=== PATIENT | male | born 1945 | race Caucasian/White ===

== ENCOUNTER → 2017-10-19 | Outpatient (REF) | payer MEDICARE ==
[2017-10-21 15:06] LABS: ANTINUCLEAR ANTIBODIES DIRECT Negative (Negative)
== END ==
LOC: M LAB REF 17:20
DX: D69.6 Thrombocytopenia, unspecified (principal)
CPT/HCPCS: 86038

== ENCOUNTER → 2017-10-27 | Outpatient (REF) | payer MEDICARE ==
[2017-10-27 13:55] LABS: RETIC HEMOGLOBIN EQUIVALENT 29.7 pg (24-36); RETICULOCYTE % 2.3 % (0.5-1.5)
[2017-10-27 14:18] LABS: FERRITIN 28 NG/ML (26-388); IRON (FE) 32 UG/DL (65-175); PERCENT SATURATION 9.9 % (19.7-50.0); TOTAL IRON BINDING CAPACITY 323 UG/DL (250-450)
[2017-10-28 08:11] LABS: HAPTOGLOBIN 96 mg/dL (34-200)
[2017-10-28 12:52] LABS: ALBUMIN 3.35 GM/DL (3.29-5.55); ALBUMIN % 55.8 % (55.8-66.1); ALPHA-1-GLOBULIN % 4.9 % (2.9-4.9); ALPHA-1-GLOBULINS 0.29 GM/DL (0.17-0.41); ALPHA-2-GLOBULINS % 11.8 % (7.1-11.8); BETA-1-GLOBULINS % 7.2 % (4.7-7.2); BETA-2-GLOBULINS % 4.2 % (3.2-6.5); GAMMA GLOBULIN % 16.1 % (11.1-18.8)
[2017-10-28 12:53] LABS: ALPHA-2-GLOBULINS 0.71 GM/DL (0.42-0.99); BETA-1-GLOBULINS 0.43 GM/DL (0.28-0.60); BETA-2-GLOBULINS 0.25 GM/DL (0.19-0.55); GAMMA GLOBULINS 0.97 GM/DL (0.65-1.58)
== END ==
LOC: M LAB REF 13:37
DX: D69.3 Immune thrombocytopenic purpura (principal); D69.59 Other secondary thrombocytopenia; T50.905A Adverse effect of unspecified drugs, medicaments and biological substances, initial encounter
CPT/HCPCS: 83010

== ENCOUNTER → 2017-11-03 | Outpatient (REF) | payer MEDICARE | LOC: M LAB REF 17:19 | DX: D69.3 Immune thrombocytopenic purpura (principal); D69.59 Other secondary thrombocytopenia | CPT/HCPCS: 86880 ==

== ENCOUNTER → 2017-12-02 | Outpatient (REF) | payer MEDICARE ==
[2017-12-02 14:41] LABS: FERRITIN 11 NG/ML (26-388); IRON (FE) 68 UG/DL (65-175); PERCENT SATURATION 18.9 % (19.7-50.0); TOTAL IRON BINDING CAPACITY 359 UG/DL (250-450)
== END ==
LOC: M LAB REF 13:50
DX: D69.3 Immune thrombocytopenic purpura (principal); D69.59 Other secondary thrombocytopenia; T50.905A Adverse effect of unspecified drugs, medicaments and biological substances, initial encounter
CPT/HCPCS: 83550

== ENCOUNTER 2018-05-13 11:19 | Day surgery (SDC) | payer MEDICARE ==
[~2018-05-13] VITALS: Ht 152.4 cm; Wt 74.8 kg
[~2018-05-13 11:19] MED LIST: ATIV1TAB10 PO; ATOR1TAB19 PO; CARB25TA9 PO; CITA-231 PO; DIGI1TAB3 PO; DILT180C74 PO; FERR1TAB8 PO; FURO20TA2 PO; GLIP2.5T6 PO; LOPR1TAB6 PO; MAGN64TASA PO; METF10004 PO; METO1TAB7 PO; METO25TA4 PO; NAME5TAB13 PO; NS 1,000 ML IV ONE; PANT40TA3 PO; PRED50TA PO; PRIM250T8 PO; ROPI2TAB24 PO; VIMP100T PO
[2018-05-13] MEDS ORDERED: PROPOFOL 200 MG/20 ML VIAL As Ordered ONE (12:44)
[2018-05-13] MEDS ORDERED: LIDOCAINE 2% INJ 100 MG/5 ML SDV (FOR ANES.) As Ordered ONE (12:44)
--- NOTE | 2018-05-13 13:46 | ROOR ---
Patient Name: Andrew Magana Procedure Date: 05/13/2018 1:08 PM Date of : 1945 Age: 72 Room: [facility] Gender: Male Note Status: Finalized Procedure: Upper GI endoscopy Indications: Acute post hemorrhagic anemia Providers: Sukhwinder Horne MD Referring MD: ALFA RIDDLE DO Requestsally Provider: Medicines: Monitored Anesthesia Care Complications: No immediate complications. Procedure: Pre-Anesthesia Assessment: - Prior to the procedure, a History and Physical was performed, and patient medications and allergies were reviewed. The patient is competent. The risks and benefits of the procedure and the sedation options and risks were discussed with the patient. All questions were answered and informed consent was obtained. Patient identification and proposed procedure were verified by the physician, the nurse and the anesthesiologist in the procedure room. Mental Status Examination: normal. Airway Examination: normal oropharyngeal airway and neck mobility. Respiratory Examination: clear to auscultation. CV Examination: normal. Prophylactic Antibiotics: The patient does not require prophylactic antibiotics. Prior Anticoagulants: The patient has taken no previous anticoagulant or antiplatelet agents. ASA Grade Assessment: III - A patient with severe systemic disease. After reviewing the risks and benefits, the patient was deemed in satisfactory condition to undergo the procedure. The anesthesia plan was to use monitored anesthesia care (MAC). Immediately prior to administration of medications, the patient was re-assessed for adequacy to receive sedatives. The heart rate, respiratory rate, oxygen saturations, blood pressure, adequacy of pulmonary ventilation, and response to care were monitored throughout the procedure. The physical status of the patient was re-assessed after the procedure. The Endoscope was introduced through the mouth, and advanced to the second part of duodenum. The upper GI endoscopy was accomplished without difficulty. The patient tolerated the procedure well. Findings: The Z-line was irregular and was found 35 cm from the incisors. One tongue of salmon-colored mucosa was present from 33 to 35 cm. No other visible abnormalities were present. The maximum longitudinal extent of these esophageal mucosal changes was 2 cm in length. Biopsies were taken with a cold forceps for histology. Verification of patient identification for the specimen was done by the physician and nurse using the patient's name, date and medical record number. Estimated blood loss was minimal. Diffuse severe inflammation characterized by erosions, erythema and granularity was found in the gastric fundus, in the gastric body and in the gastric antrum. Biopsies were taken with a cold forceps for Helicobacter pylori testing. Diffuse moderate inflammation characterized by erythema was found in the duodenal bulb and in the second portion of the duodenum. Biopsies for histology were taken with a cold forceps for evaluation of celiac disease. Impression: - Z-line irregular, 35 cm from the incisors. 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 Biopsied. - Gastritis. Biopsied. - Duodenitis. Biopsied. Recommendation: - Patient has a contact number available for emergencies. The signs and symptoms of potential delayed complications were discussed with the patient. Return to normal activities tomorrow. Written discharge instructions were provided to the patient. - Resume previous diet. - Follow an antireflux regimen. 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 - Await pathology results. - Repeat upper endoscopy in 1 year for surveillance based on pathology results. - Based on the biopsy results you will receive a phone call from GI clinic in 2-3 weeks to review the pathology results AND/OR your results will be faxed to your Primary care physician. - Return to primary care physician. Sukhwinder Horne MD Sukhwinder Horne MD 05/13/2018 1:46:14 PM This report has been signed electronically. Number of Addenda: 0 Note Initiated On: 05/13/2018 1:08 PM Estimated Blood Loss: Estimated blood loss was minimal.
[2018-05-13 13:55] VITALS: BP 124/71
== END 2018-05-13 13:42 | disposition home or self-care (01) ==
LOC: M OPP 11:19
PROVIDERS: ATTEND Internal Medicine Gastroenterology
DX: D62 Acute posthemorrhagic anemia (principal); K22.8 Other specified diseases of esophagus; K29.70 Gastritis, unspecified, without bleeding; K29.80 Duodenitis without bleeding; I48.91 Unspecified atrial fibrillation; I25.2 Old myocardial infarction; G47.30 Sleep apnea, unspecified; I50.9 Heart failure, unspecified; E11.9 Type 2 diabetes mellitus without complications; Z79.899 Other long term (current) drug therapy; Z88.8 Allergy status to other drugs, medicaments and biological substances; Z95.5 Presence of coronary angioplasty implant and graft; Z87.891 Personal history of nicotine dependence

== ENCOUNTER 2021-08-31 15:03 | Inpatient (IN) | payer MEDICARE ==
[~2021-08-31] VITALS: Ht 154.9 cm; Wt 75.0 kg
[2021-08-31] VITALS (17 sets, daily range): BP systolic 97–113; BP diastolic 51–60
[~2021-08-31 15:03] MED LIST changes: -CITA-231 PO; +CITA40TA6 PO; -DILT180C74 PO; +DILT1CAP4 PO; -NS 1,000 ML IV ONE; +PANT40TA29 PO; -PANT40TA3 PO
[2021-08-31] MEDS ORDERED: NS 1,000 ML IV ONE (16:55)
[2021-08-31] MEDS ORDERED: MORPHINE 4 MG/ML 1ML VIAL/SYRINGE IV PRN (17:10)
[2021-08-31] MEDS ORDERED: ONDANSETRON 4MG/2ML VIAL IV PRN (17:10)
[2021-08-31] MEDS: NS 1,000 ML IV SCH (17:10)
[2021-08-31] MEDS ORDERED: NOREPINEPHRINE BITARTRATE 8 MG in D5W 492 ML IV SCH (18:00)
[2021-08-31 18:34] LABS: HEMOGLOBIN 10.6 g/dl (13.5-17.5); MEAN CORPUSCULAR HEMOGLOBIN 33.2 pg (27.0-33.0); MEAN CORPUSCULAR HGB CONC 33.1 g/dl (32.0-36.5); MEAN CORPUSCULAR VOLUME 100.3 fl (80.0-96.0); PLATELET COUNT, AUTOMATED 178 10^3/uL (150-450); RED BLOOD COUNT 3.19 10^6/uL (4.30-6.10); WHITE BLOOD COUNT 15.1 10^3/uL (4.0-10.0)
[2021-08-31 18:49] LABS: INR 1.16; PARTIAL THROMBOPLASTIN TIME 29.7 SECONDS (25.9-37.0); PROTHROMBIN TIME 15.2 SECONDS (12.7-14.5)
[2021-08-31 18:59] LABS: ALBUMIN 3.1 GM/DL (3.2-5.2); ALT/SGPT 51 U/L (12-78); BILIRUBIN,TOTAL 0.3 MG/DL (0.2-1.0); BLOOD UREA NITROGEN 20 MG/DL (7-18); CALCIUM LEVEL 8.9 MG/DL (8.8-10.2); CARBON DIOXIDE LEVEL 24 MEQ/L (21-32); CHLORIDE LEVEL 103 MEQ/L (98-107); CREATININE FOR GFR 0.95 MG/DL (0.70-1.30); GLOMERULAR FILTRATION RATE > 60.0 (>42); GLUCOSE, FASTING 254 MG/DL (70-100); SODIUM LEVEL 137 MEQ/L (136-145); TOTAL PROTEIN 5.7 GM/DL (6.4-8.2)
[2021-08-31] MEDS ORDERED: DEXTROSE 50% 50 ML SYRINGE IV PRN (19:15)
[2021-08-31] MEDS ORDERED: GLUCOSE 4GM CHEW TABLET PO PRN (19:15)
[2021-08-31] MEDS ORDERED: GLUCAGON INJ 1MG VIAL SC PRN (19:15)
[2021-08-31] MEDS ORDERED: LORazepam 0.5 MG TAB PO PRN (19:25)
[2021-08-31] MEDS ORDERED: ALBUTEROL SULFATE 2.5 MG/0.5 ML INH NEB SOLN NEB PRN (19:25)
[2021-08-31] MEDS ORDERED: SINEMET 25-100 MG TAB PO SCH (19:25)
[2021-08-31] MEDS ORDERED: PRIM250T8 PO (19:29)
[2021-08-31] MEDS ORDERED: GABA600T4 PO (19:30)
[2021-08-31] MEDS: KETOROLAC 30 MG/ML 1ML VIAL IV PRN (19:31)
[2021-08-31] MEDS ORDERED: HOME MED LIST COMPLETE! XX SCH (19:35)
[2021-08-31] MEDS ORDERED: PRIMIDONE 125MG PER 1/2 TABLET PO SCH (21:00)
[2021-08-31] MEDS: SENOKOT S TAB PO SCH (21:01)
[2021-08-31] MEDS: PANTOPRAZOLE 40MG VIAL IV SCH (21:02)
[2021-08-31] MEDS: INSULIN LISPRO (NovoLOG) PER UNIT SC SCH (21:02)
[2021-08-31] MEDS: ATORVASTATIN 10 MG TAB PO SCH (23:03)
[2021-08-31] MEDS: SINEMET 25-100 MG TAB PO SCH (23:04)
[2021-08-31] MEDS: PRIMIDONE 250 MG TAB PO SCH (23:04)
[2021-08-31] MEDS: rOPINIRole 2MG TAB PO SCH (23:04)
[2021-08-31] MEDS: MEMANTINE 5MG TABLET (NAMENDA) PO SCH (23:04)
[2021-09-01] VITALS (29 sets, daily range): BP systolic 81–125; BP diastolic 48–69
[2021-09-01] MEDS ORDERED: NS 250 ML IV SCH (00:45)
[2021-09-01] MEDS: NS 1,000 ML IV SCH (01:10)
[2021-09-01 01:34] LABS: HEMATOCRIT 26.1 % (42.0-52.0); HEMOGLOBIN 8.8 g/dl (13.5-17.5); MEAN CORPUSCULAR HEMOGLOBIN 33.2 pg (27.0-33.0); MEAN CORPUSCULAR HGB CONC 33.7 g/dl (32.0-36.5); MEAN CORPUSCULAR VOLUME 98.5 fl (80.0-96.0); PLATELET COUNT, AUTOMATED 145 10^3/uL (150-450); RED BLOOD COUNT 2.65 10^6/uL (4.30-6.10); WHITE BLOOD COUNT 8.7 10^3/uL (4.0-10.0)
[2021-09-01 05:18] LABS: HEMATOCRIT 32.9 % (42.0-52.0); MEAN CORPUSCULAR HEMOGLOBIN 32.8 pg (27.0-33.0); MEAN CORPUSCULAR HGB CONC 33.7 g/dl (32.0-36.5); MEAN CORPUSCULAR VOLUME 97.3 fl (80.0-96.0); PLATELET COUNT, AUTOMATED 148 10^3/uL (150-450); RED BLOOD COUNT 3.38 10^6/uL (4.30-6.10); WHITE BLOOD COUNT 8.2 10^3/uL (4.0-10.0)
[2021-09-01 05:19] LABS: HEMOGLOBIN 11.1 g/dl (13.5-17.5)
[2021-09-01 05:50] LABS: ALBUMIN 2.7 GM/DL (3.2-5.2); ALT/SGPT 14 U/L (12-78); BILIRUBIN,TOTAL 0.5 MG/DL (0.2-1.0); BLOOD UREA NITROGEN 18 MG/DL (7-18); CALCIUM LEVEL 8.6 MG/DL (8.8-10.2); CARBON DIOXIDE LEVEL 26 MEQ/L (21-32); CHLORIDE LEVEL 104 MEQ/L (98-107); CREATININE FOR GFR 0.83 MG/DL (0.70-1.30); GLOMERULAR FILTRATION RATE > 60.0 (>42); GLUCOSE, FASTING 203 MG/DL (70-100); POTASSIUM SERUM 4.3 MEQ/L (3.5-5.1); SODIUM LEVEL 137 MEQ/L (136-145); TOTAL PROTEIN 5.5 GM/DL (6.4-8.2)
[2021-09-01] MEDS: PANTOPRAZOLE 40MG VIAL IV SCH ×2 (08:33→20:19)
[2021-09-01] MEDS: CitaloPRAM (CeleXA) 20 MG TAB PO SCH (08:34)
[2021-09-01] MEDS: SENOKOT S TAB PO SCH ×2 (08:34→20:19)
[2021-09-01] MEDS: MEMANTINE 5MG TABLET (NAMENDA) PO SCH ×2 (08:34→20:18)
[2021-09-01] MEDS: rOPINIRole 2MG TAB PO SCH ×4 (08:34→20:18)
[2021-09-01] MEDS: PRIMIDONE 125MG PER 1/2 TABLET PO SCH (08:34)
[2021-09-01] MEDS: SINEMET 25-100 MG TAB PO SCH ×4 (08:34→20:19)
[2021-09-01] MEDS: INSULIN LISPRO (NovoLOG) PER UNIT SC SCH ×4 (08:35→20:35)
[2021-09-01] MEDS: NORCO, ANEXSIA 5/325MG TABLET (HYDROcodone/ACETAMINOPHEN) PO PRN (08:35)
[2021-09-01] MEDS: KETOROLAC 30 MG/ML 1ML VIAL IV PRN ×2 (09:59→20:58)
[2021-09-01] MEDS ORDERED: NOREPINEPHRINE BITARTRATE 8 MG in D5W 492 ML IV SCH (12:02)
[2021-09-01] MEDS: PRIMIDONE 250 MG TAB PO SCH (20:19)
[2021-09-01] MEDS: ATORVASTATIN 10 MG TAB PO SCH (20:20)
[2021-09-02] MEDS: NORCO, ANEXSIA 5/325MG TABLET (HYDROcodone/ACETAMINOPHEN) PO PRN ×3 (03:50→17:04)
[2021-09-02 06:20] LABS: HEMATOCRIT 33.5 % (42.0-52.0); HEMOGLOBIN 11.3 g/dl (13.5-17.5); MEAN CORPUSCULAR HGB CONC 33.7 g/dl (32.0-36.5); MEAN CORPUSCULAR VOLUME 94.9 fl (80.0-96.0); PLATELET COUNT, AUTOMATED 124 10^3/uL (150-450); RED BLOOD COUNT 3.53 10^6/uL (4.30-6.10); WHITE BLOOD COUNT 9.6 10^3/uL (4.0-10.0)
[2021-09-02 06:41] VITALS: BP 132/80
[2021-09-02 06:50] LABS: ALBUMIN 2.8 GM/DL (3.2-5.2); ALT/SGPT 12 U/L (12-78); BILIRUBIN,TOTAL 0.4 MG/DL (0.2-1.0); BLOOD UREA NITROGEN 16 MG/DL (7-18); CALCIUM LEVEL 8.3 MG/DL (8.8-10.2); CARBON DIOXIDE LEVEL 28 MEQ/L (21-32); CHLORIDE LEVEL 103 MEQ/L (98-107); CREATININE FOR GFR 0.73 MG/DL (0.70-1.30); GLOMERULAR FILTRATION RATE > 60.0 (>42); GLUCOSE, FASTING 221 MG/DL (70-100); SODIUM LEVEL 134 MEQ/L (136-145); TOTAL PROTEIN 5.2 GM/DL (6.4-8.2)
[2021-09-02] MEDS: PANTOPRAZOLE 40MG VIAL IV SCH ×2 (08:16→22:42)
[2021-09-02] MEDS: CitaloPRAM (CeleXA) 20 MG TAB PO SCH (08:16)
[2021-09-02] MEDS: rOPINIRole 2MG TAB PO SCH ×4 (08:16→22:40)
[2021-09-02] MEDS: SENOKOT S TAB PO SCH ×2 (08:16→22:40)
[2021-09-02] MEDS: PRIMIDONE 125MG PER 1/2 TABLET PO SCH (08:16)
[2021-09-02] MEDS: INSULIN LISPRO (NovoLOG) PER UNIT SC SCH ×4 (08:17→21:00)
[2021-09-02] MEDS: SINEMET 25-100 MG TAB PO SCH ×4 (08:17→22:41)
[2021-09-02] MEDS: MEMANTINE 5MG TABLET (NAMENDA) PO SCH ×2 (08:17→22:41)
[2021-09-02] MEDS: KETOROLAC 30 MG/ML 1ML VIAL IV PRN (12:17)
[2021-09-02] MEDS ORDERED: ENOXAPARIN 30MG/0.3ML SYRINGE (J1650 PER 10MG) SC SCH (21:00)
[2021-09-02 22:00] VITALS: BP 136/84
[2021-09-02] MEDS: ATORVASTATIN 10 MG TAB PO SCH (22:41)
[2021-09-02] MEDS: PRIMIDONE 250 MG TAB PO SCH (22:47)
[2021-09-03] MEDS: NORCO, ANEXSIA 5/325MG TABLET (HYDROcodone/ACETAMINOPHEN) PO PRN ×2 (02:49→15:34)
[2021-09-03 06:00] VITALS: BP 121/69
[2021-09-03 06:20] LABS: HEMATOCRIT 33.3 % (42.0-52.0); HEMOGLOBIN 11.2 g/dl (13.5-17.5); MEAN CORPUSCULAR HGB CONC 33.6 g/dl (32.0-36.5); MEAN CORPUSCULAR VOLUME 95.1 fl (80.0-96.0); PLATELET COUNT, AUTOMATED 125 10^3/uL (150-450); WHITE BLOOD COUNT 9.1 10^3/uL (4.0-10.0)
[2021-09-03 06:51] LABS: ALBUMIN 2.7 GM/DL (3.2-5.2); ALT/SGPT 10 U/L (12-78); BILIRUBIN,TOTAL 0.4 MG/DL (0.2-1.0); BLOOD UREA NITROGEN 15 MG/DL (7-18); CALCIUM LEVEL 8.8 MG/DL (8.8-10.2); CARBON DIOXIDE LEVEL 30 MEQ/L (21-32); CHLORIDE LEVEL 103 MEQ/L (98-107); GLOMERULAR FILTRATION RATE > 60.0 (>42); GLUCOSE, FASTING 209 MG/DL (70-100); POTASSIUM SERUM 4.2 MEQ/L (3.5-5.1); SODIUM LEVEL 138 MEQ/L (136-145); TOTAL PROTEIN 5.3 GM/DL (6.4-8.2)
[2021-09-03] MEDS: INSULIN LISPRO (NovoLOG) PER UNIT SC SCH ×2 (08:41→12:45)
[2021-09-03] MEDS: PANTOPRAZOLE 40MG VIAL IV SCH (08:41)
[2021-09-03] MEDS: PRIMIDONE 125MG PER 1/2 TABLET PO SCH (08:42)
[2021-09-03] MEDS: MEMANTINE 5MG TABLET (NAMENDA) PO SCH (08:42)
[2021-09-03] MEDS: CitaloPRAM (CeleXA) 20 MG TAB PO SCH (08:42)
[2021-09-03] MEDS: rOPINIRole 2MG TAB PO SCH ×2 (08:42→12:45)
[2021-09-03] MEDS: SENOKOT S TAB PO SCH (08:42)
[2021-09-03] MEDS: SINEMET 25-100 MG TAB PO SCH ×2 (08:42→12:46)
[2021-09-03] MEDS: KETOROLAC 30 MG/ML 1ML VIAL IV PRN (08:44)
[2021-09-03 14:00] VITALS: BP 130/69
[2021-09-03] MEDS ORDERED: HYDR-3715 PO (14:32)
== END 2021-09-03 15:50 | disposition home or self-care (01) | DRG 184 ==
LOC: M ICU 17:51 → M MS5PR 09-01 14:03
PROVIDERS: ADMIT Surgery; ATTEND Surgery
DX: S22.41XA Multiple fractures of ribs, right side, initial encounter for closed fracture (principal); D62 Acute posthemorrhagic anemia; S42.001A Fracture of unspecified part of right clavicle, initial encounter for closed fracture; V86.55XA Driver of 3- or 4- wheeled all-terrain vehicle (ATV) injured in nontraffic accident, initial encounter; E11.9 Type 2 diabetes mellitus without complications; I10 Essential (primary) hypertension; I25.10 Atherosclerotic heart disease of native coronary artery without angina pectoris; G20 Parkinson's disease; I48.0 Paroxysmal atrial fibrillation; Z86.73 Personal history of transient ischemic attack (TIA), and cerebral infarction without residual deficits; F03.90 Unspecified dementia, unspecified severity, without behavioral disturbance, psychotic disturbance, mood disturbance, and anxiety; Z90.49 Acquired absence of other specified parts of digestive tract; Z88.8 Allergy status to other drugs, medicaments and biological substances; I95.9 Hypotension, unspecified; Y92.9 Unspecified place or not applicable; Z79.899 Other long term (current) drug therapy